=== PATIENT | female | born 1935 | race Caucasian/White ===

== ENCOUNTER 2016-05-10 11:39 | Emergency (ER) | payer MEDICARE, BC ==
[~2016-05-10] VITALS: Ht 165.1 cm; Wt 62.3 kg
[~2016-05-10 11:39] MED LIST: ANTIVERT 25MG25 MG PO; ASPI325T6 PO; CALCIUM500 MG PO; CALCIUM600 M1 PO; DULCOLAX S10 MG/SUPP RC; FERROUS SULFATE65 MG PO; MILK OF MA400 MG/52 PO; NORCO 325 MG-51 TAB PO; OMEGA 31000 MG PO; PRAVACHOL10 MG PO; SENOKOT S 50 MG1 TAB PO; TYLENOL 325MG325 MG PO; VITAMIN C500 MG PO; ZOFRAN 4MG T4 MG/TAB PO
[2016-05-10 11:51] VITALS: TEMP 97.6
[2016-05-10 13:02] LABS: ADJUSTED CALCIUM 9.4 mg/dL (8.4-10.2); ALBUMIN 3.9 gm/dL (3.5-5.0); BILIRUBIN,TOTAL 1.4 mg/dL (0.0-1.0); CALCIUM 9.3 mg/dL (8.4-10.2); CREATININE, serum 0.62 mg/dL (0.52-1.25); POTASSIUM 3.7 mmol/L (3.4-5.0); TOTAL PROTEIN 7.4 gm/dL (6.4-8.2)
[2016-05-10 13:13] LABS: BASO % 0.3 % (0.0-2.0); EOS # 0.1 (0.0-0.7); EOS % 0.4 % (0-4.0); GRAN # 11.1 (1.4-6.5); GRAN % 76.2 % (42.2-75.2); HEMOGLOBIN 13.9 g/dl (12.5-16.0); LYMPH # 2.2 (1.2-3.4); LYMPH % 15.2 % (20.0-51.0); MEAN CELL VOLUME 88 fl (80.0-100.0); MEAN CORPUSCULAR HEMOGLOBIN 29 pg (27.0-31.0); MEAN CORPUSCULAR HGB CONC 33 g/dl (33.0-37.0); MEAN PLATELET VOLUME 10.6 fl (7.4-10.4); MONO # 1.1 (0.1-0.6); MONO % 7.6 % (1.7-9.3); PLATELET COUNT 290 K/mm3 (130-400); RED BLOOD COUNT 4.76 M/mm3 (4.10-5.30); REDCELL DISTRIBUTION WIDTH-CV 14.6 % (11.5-14.5); WHITE BLOOD COUNT 14.6 K/mm3 (4.8-10.8)
[2016-05-10 14:54] LABS: PH 6 (5-8); SQUAMOUS EPITHELIAL None Seen /hpf; URINE APPEARANCE Clear; URINE BACTERIA None Seen /hpf; URINE BILIRUBIN Negative (NEGATIVE); URINE BLOOD Negative (NEGATIVE); URINE COLOR Yellow; URINE GLUCOSE Negative (NEGATIVE); URINE KETONE 1+ (NEGATIVE); URINE RBC 0-2 /hpf; URINE UROBILINOGEN Negative (NEGATIVE); URINE WBC 0-2 /hpf
[2016-05-10 15:31] VITALS: BP 125/78; PULSE 71
== END 2016-05-10 15:30 | disposition home or self-care (01) ==
LOC: COL.ER 11:39
PROVIDERS: Emergency Medicine
DX: R53.1 Weakness (principal); R53.83 Other fatigue; I45.10 Unspecified right bundle-branch block
CPT/HCPCS: J7030

== ENCOUNTER 2018-05-10 10:45 | Outpatient (RCR) | payer MEDICARE, BC ==
[~2018-05-10 10:45] MED LIST changes: +ASPIRIN 32325 MG/TAB PO; +NATURAL IRON65 MG PO; +OMEGA-3 1000 MG1 CAP PO; +ZOLOFT 25MG25 MG PO
== END 2018-05-10 15:35 | disposition home or self-care (01) ==
LOC: MKS.ESL.PT 10:45
DX: S72.112D Displaced fracture of greater trochanter of left femur, subsequent encounter for closed fracture with routine healing (principal)
CPT/HCPCS: G8978-GP; G8979-GP

== ENCOUNTER 2018-11-11 14:00 | Inpatient (IN) | payer MEDICARE, BC ==
[~2018-11-11] VITALS: Ht 165.1 cm; Wt 61.8 kg
--- NOTE | 2018-11-11 14:15 | NUR ---
PATIENT ARRIVED TO ROOM 334. PATIENT SETTELED INTO ROOM.
[2018-11-11 14:39] VITALS: BP 103/86; PULSE 68; TEMP 98.3
[2018-11-11] MEDS ORDERED: TYLENOL 500MG500 MG PO (15:00)
[2018-11-11] MEDS ORDERED: LOVENOX 4040 MG/0.4 SQ (15:01)
[2018-11-11] MEDS ORDERED: ULTRAM 50MG TAB50 MG PO (15:02)
[2018-11-11] MEDS ORDERED: ZOFRAN 4MG T4 MG/TAB PO (15:10)
--- NOTE | 2018-11-11 17:19 | NUR ---
PATIENT ADMISSION ASSESSMENT COMPLETE. SEE ASSESSMENT B. CALL LIGHT WITHIN REACH. DINNER TRAY AT THE BEDSIDE. PATIENT DENIES ANY NEEDS AT THIS TIME.
--- NOTE | 2018-11-11 18:53 | NUR ---
REPORT GIVEN TO PATY LOO.
--- NOTE | 2018-11-11 21:00 | NUR ---
PT RESTING IN BED. FRIENDLY AND TALKATIVE. C/O LLE PAIN. SEE MAR FOR ES TYLENOL GIVEN. PT SIGNED ADMISSION CONSENT PAPERS. REVIEWED IPR ROUTINE AND SCHEDULES FOR THERPIES. CALL LIGHT IN REACH. BED ALARM SET.
[2018-11-12 05:40] VITALS: BP 105/61; PULSE 55; TEMP 98.2
--- NOTE | 2018-11-12 12:57 | NUR ---
Pt toileted, returned to bed.
--- NOTE | 2018-11-12 15:44 | NUR ---
SW met with the patient to complete initial intake, as the patient is new to [facility]. The patient lives alone outside of [place]. She states that her son (Pawel) and [id number] (Latoya) live fifteen miles away from [place]. She reports independence with ADLs prior to hospitalization and has a cane, walker, and wheelchair. The patient's PCP is Dr. Russel Frost and she receives her medications at the [facility]. She reports no difficulties obtaining her meds. The patient's advanced directives are in EMR. Her DPOA-HC is her daughter, Tonia Sanchez (ph#[phone]). The first alternate is her son, Paewl Olmos (ph#[phone]) and the second alternate is her other son, Miguel Olmos ([phone]). TOMASA to continue to follow to ensure a safe discharge.
--- NOTE | 2018-11-12 20:00 | NUR ---
PT RESTING IN BED. PLEASANT AND COPPERATIVE. PAIN TO BACK/PELVIC OCCURS ONLY WITH MOVEMENT. UP TO LEVEL 10. SEE MAR FOR PAIN MEDS GIVEN. GAVE COLACE FOR MILD CONSTIPATION. NO NEEDS AT THIS TIME. CALL LIGHT IN REACH. BED ALARM SET.
[2018-11-12 20:55] VITALS: BP 111/61; PULSE 56; TEMP 97.8
--- NOTE | 2018-11-12 21:07 | NUR ---
Pt very talkative, stops while ambulating to BR to continue talking, offloads LLE with arms and walker significantly. Requested pain meds prior to time for PRNs, reviewed with pt. Report to PATY Payan.
[2018-11-13 05:32] VITALS: BP 103/85; PULSE 57; TEMP 97.9
[2018-11-13 08:48] VITALS: BP 127/50; PULSE 56; TEMP 98.1
--- NOTE | 2018-11-13 10:58 | NUR ---
Patient requested that she not be given any Tramadol as she feels that this med is causing her numbness in her fingertips. Given PRN Tylenol this morning with good effect. Will continue to monitor.
[2018-11-13 18:00] VITALS: BP 96/75; PULSE 82; TEMP 98.5
--- NOTE | 2018-11-13 19:33 | NUR ---
Patient attended all therapies today. Tolerated diet well today. Reported pain of 5/10 pain this morning and was given prn tylnol with good effect. Patient did not request pain pills through out the afternoon, when asked she said that pain was at zero at that time. Educated patient on need to stay ahead of pain instead of letting it get too high. She voiced understanding.
--- NOTE | 2018-11-13 21:00 | NUR ---
PT VERY APPRECIATIVE OF CARE GIVEN ALTHOUGH SHE HAS MANY COMPLAINTS. BED, ROOM TEMP, NO SHOWER SINCE THURSDAY. STAFF. PROVIDED EMOTIONAL SUPPORT. OFFERED CLEAN UP TONIGHT BUT INSIST ON SHOWER TOMORRW. I ENSURED PT I WOULD PASS ALONG INFO TO DAYSHIFT TOMORROW. PT WAS HAPPY WITH THIS. PT DENIED ANY OTHER NEEDS AT THIS TIME. PT RELATES PAIN ONLY WHEN SHE GETS OUT OF BED. ENC PT TO NOTIFY NURSE IF NEEDING PAIN MEDICATION. PT AGREED. CALL LIGHT IN REACH. BED ALARM SET.
[2018-11-14 06:18] VITALS: BP 136/70; PULSE 55; TEMP 97.6
[2018-11-14 17:43] VITALS: BP 127/66; PULSE 64; TEMP 98
--- NOTE | 2018-11-14 19:14 | NUR ---
Patient resting in bed at this time, call light in reach and bed alarm is on. Patient tolerating diet well this shift. She was a one assist with transferring to toilet. Patient was very talkative this shift and was in a pleasent mood. Patient wears a brief and was continent this shift.
--- NOTE | 2018-11-14 20:19 | NUR ---
PT RESTING IN BED. HAD BM EALIER THIS PM. NEEDS MOD AMT ASSIST WITH AM WITH WALKER. SEE MAR FOR PAIN MEDS GIVEN. CALL LIGHT IN REACH. BED ALARM SET.
[2018-11-15 05:43] VITALS: BP 104/55; PULSE 54; TEMP 97.9
--- NOTE | 2018-11-15 07:38 | NUR ---
Report from PATY Payan. Pt called to toilet, takes long time to get out of bed and amb to BR with walker, gait belt, asked assistance for moving LLE, has unsteadiness.
--- NOTE | 2018-11-15 09:31 | NUR ---
Provided 20-30 minutes of therapuetic listening/encouragement prior to start of therapy as pt has c/o of staff/issues and pt voices being frustrated with herself/family/God. Pt thanked nurse for support.
--- NOTE | 2018-11-15 12:30 | NUR ---
Updated Dr. Mason about pt's pain and insomnia, see new orders.
--- NOTE | 2018-11-15 16:25 | NUR ---
Pt called to toilet, assisted out of bed, toileted, returned to chair with alarm on, call lt in reach, gripper socks in place.
[2018-11-15 17:25] VITALS: BP 110/61; PULSE 65; TEMP 98.5
--- NOTE | 2018-11-15 21:00 | NUR ---
HS meds all reviwed along with roxycodone for pain. States will take her cookie for snack. Alert and pleasant. Denies further needs. Visits about family and friend.
--- NOTE | 2018-11-16 02:09 | NUR ---
Patient sat up on side of bed for 15minutes and rested self back. Assisted with hips and BLE over in bed and pillow under legs.
--- NOTE | 2018-11-16 02:44 | NUR ---
Patient rests with eyes closed. Respirations with ease.
[2018-11-16 06:00] VITALS: BP 121/52; PULSE 61; TEMP 98.2
--- NOTE | 2018-11-16 09:10 | NUR ---
Patient working with PT at this time. Patient reported sleeping fairly well last night. Denies questions at this time. Was a one person SBA transfer to toilet and was able to wipe herself independently.
--- NOTE | 2018-11-16 13:21 | NUR ---
SW met with patient to follow up and discuss scheduling a family conference. Patient reports she would like her daughter in law, Latoya, to attend. SW contacted Latoya and she reports she can attend the meeting at 10am tomorrow 11/17.
[2018-11-16 16:37] VITALS: BP 113/51; PULSE 64; TEMP 98.3
--- NOTE | 2018-11-16 19:55 | NUR ---
Patient having some pain to her lower left flank area. She is also having some urgency with urination. She does not have a history of UTI's, but does have a history of kidney stones. Will discuss with radhaan tomorrow.
--- NOTE | 2018-11-16 20:13 | NUR ---
This nurse did observe patient's urine, which was light yellow, very clear and did not have a fowel oder. The urine was strained with only two small specs of sediment observed. They were not hard but very minute in size. This will be communicated to physician tomorrow. This was reported to night nurse.
--- NOTE | 2018-11-16 22:15 | NUR ---
Patient resting awake in bed. HS meds all reviewed and given. Up to the bathroom and back to bed with CERTIFIED MEDICAL ASST and requested tylenol for pain/given. BLE elevated on pillows.
--- NOTE | 2018-11-16 23:45 | NUR ---
Rests with eyes closed. Respirations with ease.
--- NOTE | 2018-11-17 01:20 | NUR ---
Patient up to the bathroom accompanied by BAR CAPTAIN and rests back in bed.
[2018-11-17 05:01] VITALS: BP 113/65; PULSE 58; TEMP 97.6
--- NOTE | 2018-11-17 05:30 | NUR ---
Awakened for med. Denies need for pain med at this time. Up to the bathroom slowly with LASER PRINT OPERATOR and back to bed.
--- NOTE | 2018-11-17 13:24 | NUR ---
SW attended a family conference with patient and daughter in law. IPR director, PT, and OT were also present. IPR director explained the purpose of the conference. PT and OT report that patient has made good progress and will continue to make progress this week but patient's pain continues to be a barrier. Patient's pain medication regimen was adjusted by the doctor today. A tentative discharge date was set for Friday 11/24. Patient will discharge home with continued therapy from [facility]. Patient's daughter in law reports they have been in contact with Juan Luis from [facility] to discuss the services they can provide in addition to PT and OT. TOMASA will continue to follow. TOMASA later provided IPR team conference notes.
--- NOTE | 2018-11-17 15:48 | NUR ---
Patient resting in recliner at this time with son and friend by her side. Patient tolerating diet well today. Reporting pain 6-8/10 and given prn tramadol this afternoon for pelvic pain. Will continue to monitor.
[2018-11-17 17:29] VITALS: BP 109/60; PULSE 63; TEMP 98
--- NOTE | 2018-11-17 21:19 | NUR ---
Patient tolerated diet well this shift. Dr. Mason discussed pain meds with patient, see new orders to increase Tramadol. Patient was a mod assist with transfers today. She required some assistance with trying to stand from a sitting position on the toilet. She was able to urinate on her own, wears a pad in underwear. No incontinence this shift. She has been having urge incontinence, but urine is light yellow, clear and no fowel odor to it. She is having good output this shift. Patient required some min assist with adjusting clothes following her toileting. Patient has a good memory discussed stories from jen faustin. Was in good humor this shift.
[2018-11-18 05:29] VITALS: BP 116/57; PULSE 59; TEMP 97.6
--- NOTE | 2018-11-18 06:19 | NUR ---
pt reports she slept very well. had a good night.
[2018-11-18 17:50] VITALS: BP 87/54; PULSE 65; TEMP 98.3
--- NOTE | 2018-11-18 19:31 | NUR ---
SUMMARY: Report from PATY Payan. Pt reports she feels she is not doing as well in therapies as yesterday, gave encouragment. Pt states [facility] rep came and visited with her and JATIN Klein. Pt reports pain min-mod at rest, but "10 PLUS" when walking, PRNs given. Ice to hip this mahendra. Pt in bed, alarm on, call lt in reach. Report to PATY Payan.
--- NOTE | 2018-11-18 21:00 | NUR ---
PT RESTING IN BED. SEE MAR FOR PAIN MEDS GIVEN. ICE PACK TO LT HIP FOR COMFORT. PT TALKATIVE AND DENIES NEEDS AT THIS TIME. CALL LIGHT IN REACH. BED ALARM SET.
[2018-11-19 02:12] VITALS: BP 118/58; PULSE 62; TEMP 98.2
--- NOTE | 2018-11-19 11:43 | NUR ---
Report from PATY Payan. Pt calls to toilet, gets anxious and asks for help moving LLE out of bed, afraid of incont. Asked therapy for leg advertising display rotator to increase pt's indepence. Ultram prior to therapy.
--- NOTE | 2018-11-19 13:22 | NUR ---
Pt ate lunch in bed, nurse rounding and offered tylenol for pain, then pt asked to toilet, provided pt with gait belt to use as leg pattern layout worker and she struggled for some time with gripper socks in the sheets before getting leg over side of bed. Once pt to toilet, she verbalized not having patience or tolerance for her current condition and she was uncertain of a plan for after she discharges home, stating that her family will stay with her for a few days. Discouraged that she is not making progress- nurse asked pt how many times she has gotten her leg out of bed on her own, to which pt replies, "once" and nurse affirms that this is improvement. Pt returned to chair, nurse got ice pack for left hip, upon return the pt apologizes for her negativity. Pt denied further needs.
--- NOTE | 2018-11-19 15:13 | NUR ---
TOMASA met with the patient to discuss care and the discharge plan. The patient is still agreeable to home health with [facility]. emergency services dispatcher will continue to follow.
[2018-11-19 18:09] VITALS: BP 128/60; PULSE 59; TEMP 98.2
--- NOTE | 2018-11-19 23:30 | NUR ---
Patient has been resting in bed with eyes closed. Awakened for HS meds and tylenol given for pain left hip/thigh 5-08/16. Denies further needs.
--- NOTE | 2018-11-20 01:56 | NUR ---
Rests with eyes closed. Respirations with ease.
--- NOTE | 2018-11-20 03:26 | NUR ---
Patient has been resting with eyes closed. Respirations with ease.
[2018-11-20 06:01] VITALS: BP 112/55; PULSE 57; TEMP 97.8
--- NOTE | 2018-11-20 06:05 | NUR ---
Patient reports she was up to the bathroom 3 times through the night.
[2018-11-20 17:03] VITALS: BP 141/115; PULSE 67; TEMP 98
--- NOTE | 2018-11-20 18:25 | NUR ---
Patient resting in her room at this time. Patient remains alert and oriented, answers questions appropriately. Patient continues to move steadily with walker, and is independent in room per PT orders. Pain has remained well controlled with ultram. Patient denies further needs at this time, call light within reach.
--- NOTE | 2018-11-21 00:23 | NUR ---
Pt asleep. Resp even and nonlabored. Call light within reach.
[2018-11-21 05:40] VITALS: BP 115/64; PULSE 55; TEMP 97.9
[2018-11-21 17:18] VITALS: BP 114/68; PULSE 65; TEMP 98.3
--- NOTE | 2018-11-21 23:30 | NUR ---
Pt had called for her melatonin and tylenol. States pain is 6/10 in left leg. Worried about her therapy schedule for tomorrow. Encouraged to take Ultram around 6AM to help with pain and to work better with therapy.
--- NOTE | 2018-11-22 01:03 | NUR ---
Pt calls and says she still can't get to sleep and her leg is bothering her. Ultram 50mg given and a warm blanket applied to left side. Upset that she has therapy 4 times tomorrow.
[2018-11-22 06:01] VITALS: BP 118/54; PULSE 58; TEMP 97.9
--- NOTE | 2018-11-22 06:24 | NUR ---
Pt states she did not have a good night. She was worried her therapy schedule for Thursday. Explained to her to try and take a pain pill with her breakfast and then it should be helping by the time therapy works with her. Has a slow steady gait. She has been using her gait belt to help lift her left foot into bed. Denies any needs at this time. Call light within reach.
--- NOTE | 2018-11-22 11:24 | NUR ---
This nurse received call from staff at 1106 on behalf of pt wanting pain meds, this nurse finished attending to another patient then found this patient in nath with PT and administered pain meds to pt at 1120. Pt comments, "It's a day late and a dollar short but I'll take it." Then pt said thank you. Continued with PT.
--- NOTE | 2018-11-22 14:35 | NUR ---
Pt has occassionally called for assistance with cares, ex: this morning, lower body dressing prior to therapy.
[2018-11-22 16:38] VITALS: BP 113/64; PULSE 58; TEMP 98.2
--- NOTE | 2018-11-22 21:00 | NUR ---
Patient awake and reports 5/10 pain Left hip. HS meds along with tramadol given for pain. Rests in bed. Cookie given for snack. Encouraged to call for needs during the night.
--- NOTE | 2018-11-23 02:35 | NUR ---
Patient rests in bed with eyes closed. Respirations with ease.
[2018-11-23 05:56] VITALS: BP 112/60; PULSE 58; TEMP 97.7
--- NOTE | 2018-11-23 06:09 | NUR ---
AWAKENED FOR MED AND PAIN MED OFFERED-DECLINED AT THIS TIME.
--- NOTE | 2018-11-23 10:05 | NUR ---
Patient is Independent in room and hallway with 4WW. Patient reporting pain level of 5/10 and given prn pain meds with some effect. Will continue to monitor. Patient tolerating diet well this morning. No nausea.
--- NOTE | 2018-11-23 10:57 | NUR ---
TOMASA met with patient to follow up. Patient reports she has mixed feelings about discharging tomorrow but reports her daughter in law, Latoya will be staying with her. Patient will recieve [facility] for continued PT and OT. TOMASA faxed clinical info and will fax discharge orders tomorrow. TOMASA presented IM to patient. She verbalized understanding, signed and was provided a copy.
--- NOTE | 2018-11-23 12:45 | NUR ---
Patient attended all therapies today and is using her walker appropriatly with transfers in her room. Patient continues to be independent in her room with her 4WW. Patient denies questions at this time. Pain was controlled with Tylenol this morning. Will continue to monitor.
--- NOTE | 2018-11-23 13:28 | NUR ---
Patient working with OT at this time. Patient reporting pain 7/10 and requesting pain meds. Given prn Tramadol will continue to monitor.
[2018-11-23 17:38] VITALS: BP 113/63; PULSE 58; TEMP 98
--- NOTE | 2018-11-23 21:20 | NUR ---
Patient resting in bed. HS meds all reviewed and given along with tylenol for left thigh achyness. Denies further needs. States has had a bm everyday except for today.
--- NOTE | 2018-11-23 23:08 | NUR ---
Rests quietly in bed.
--- NOTE | 2018-11-24 03:08 | NUR ---
Resting quietly in bed. Respirations with ease.
[2018-11-24 03:48] VITALS: BP 104/43; PULSE 55; TEMP 98
--- NOTE | 2018-11-24 05:59 | NUR ---
AWAKENED FOR MED. DENIES NEED FOR PAIN MED. "DOING OK RIGHT NOW".
[2018-11-24] MEDS ORDERED: ULTRAM 50MG TAB50 MG PO (07:51)
[2018-11-24] MEDS ORDERED: TYLENOL 500MG500 MG PO (07:52)
--- NOTE | 2018-11-24 09:30 | NUR ---
Patient will discharge home today with [facility], PT/OT. SW contacted Juan Luis, from [facility] and faxed discharge orders. Juan Luis reports patient's first visit is scheduled for tomorrow 11/25.
--- NOTE | 2018-11-24 11:31 | NUR ---
Report from PATY Hernandez. Pt alen mod I in rm with walker. Called for pain med, ultram given. Called pt's DIL, no answer, got through to son Pawel, informed them this nurse would return call when pt ready for discharge, likely after lunch, verbalized understanding. Pt pleasant today.
--- NOTE | 2018-11-24 12:16 | NUR ---
Pt's DIL Latoya here. Pt wants to take Tylenol prior to discharge.
--- NOTE | 2018-11-24 14:06 | NUR ---
Reviewed discharge instruction with pt and JATIN Klein.
--- NOTE | 2018-11-25 13:47 | NUR ---
Discharge FIM scores for 11/24/18, were reviewed by the team. Team determined the nursing score of (6) for toileting should have been scored a 7 as pt was Mod I in her room & was able to perform her own toileting task w/out use of adaptive devices.--PD Laquita.
== END 2018-11-24 14:15 | disposition home health service (06) | DRG 561 ==
PROVIDERS: ADMIT Internal Medicine
DX: S32.592D Other specified fracture of left pubis, subsequent encounter for fracture with routine healing (principal); I10 Essential (primary) hypertension; F32.9 Major depressive disorder, single episode, unspecified; M19.90 Unspecified osteoarthritis, unspecified site; I95.9 Hypotension, unspecified; W19.XXXD Unspecified fall, subsequent encounter; Z79.891 Long term (current) use of opiate analgesic
CPT/HCPCS: 99222-AI; 99232-AI; 99239; J1650

== ENCOUNTER 2020-05-15 12:54 | Emergency (ER) | payer MEDICARE, BC ==
[~2020-05-15] VITALS: Ht 165.1 cm; Wt 60.9 kg
[~2020-05-15 12:54] MED LIST changes: +LOVENOX 4040 MG/0.4 SQ; +TYLENOL 500MG500 MG PO; +ULTRAM 50MG TAB50 MG PO
[2020-05-15 13:04] VITALS: TEMP 98.7
[2020-05-15 13:19] LABS: BASO % 0.2 % (0.0-2.0); EOS % 0.1 % (0-4.0); GRAN # 11.1 (1.4-6.5); GRAN % 82.3 % (42.2-75.2); HEMATOCRIT 44.4 % (37.0-47.0); HEMOGLOBIN 14.4 g/dl (12.5-16.0); LYMPH # 1.8 (1.2-3.4); LYMPH % 13.3 % (20.0-51.0); MEAN CELL VOLUME 90 fl (80.0-100.0); MEAN CORPUSCULAR HEMOGLOBIN 29 pg (27.0-31.0); MEAN CORPUSCULAR HGB CONC 32 g/dl (33.0-37.0); MEAN PLATELET VOLUME 10.2 fl (7.4-10.4); MONO # 0.5 (0.1-0.6); MONO % 3.7 % (1.7-9.3); PLATELET COUNT 311 K/mm3 (130-400); RED BLOOD COUNT 4.95 M/mm3 (4.10-5.30); REDCELL DISTRIBUTION WIDTH-CV 13.7 % (11.5-14.5)
[2020-05-15 13:30] LABS: ALANINE AMINOTRANSFERASE 20 U/L (4-34); ALBUMIN 4.2 gm/dL (3.5-5.0); ALKALINE PHOSPHATASE 68 U/L (50-136); ANION GAP 7 mmol/L (7-16); AST,SGOT 29 U/L (15-37); BILIRUBIN,TOTAL 0.8 mg/dL (0.0-1.0); BLOOD UREA NITROGEN 20 mg/dL (7-17); CALCIUM 9.3 mg/dL (8.4-10.2); CARBON DIOXIDE 28 mmol/L (22-30); CHLORIDE 106 mmol/L (98-107); CREATININE, serum 0.63 (0.52-1.25); GLUCOSE 120 mg/dL (74-106); POTASSIUM 3.7 mmol/L (3.4-5.0); SODIUM 141 mmol/L (137-145); TOTAL PROTEIN 7.2 gm/dL (6.4-8.2)
[2020-05-15 13:43] LABS: TROPONIN-I < 0.012 ng/mL (0.000-0.035)
[2020-05-15 15:06] LABS: COLLECTION METHOD CLEAN CATCH
[2020-05-15 15:42] LABS: MUCOUS Present /lpf; PH 6 (5-8); URINE APPEARANCE Hazy; URINE BACTERIA Rare /hpf; URINE BILIRUBIN Negative (NEGATIVE); URINE BLOOD Negative (NEGATIVE); URINE COLOR Yellow; URINE GLUCOSE Negative (NEGATIVE); URINE KETONE 1+ (NEGATIVE); URINE LEUKOCYTE ESTERASE 3+ (NEGATIVE); URINE NITRATE Negative (NEGATIVE); URINE PROTEIN(semi-quant) 1+ (NEGATIVE); URINE RBC 20-50 /hpf; URINE UROBILINOGEN Negative (NEGATIVE); URINE WBC 20-50 /hpf
[2020-05-15 15:47] LABS: SQUAMOUS EPITHELIAL None Seen /hpf
[2020-05-15] MEDS ORDERED: MACROBID 1100 MG/CAP PO (18:55)
[2020-05-15 19:07] VITALS: BP 119/75; PULSE 65
[2020-05-18] MEDS ORDERED: CIPRO 500MG TA500 MG PO (10:46)
== END 2020-05-15 19:07 | disposition home or self-care (01) ==
LOC: COL.ER 12:54
PROVIDERS: Nurse Practitioner Primary Care
DX: R55 Syncope and collapse (principal); N39.0 Urinary tract infection, site not specified
CPT/HCPCS: J0696; J7030

== ENCOUNTER 2021-06-22 01:27 | Inpatient (IN) | payer MEDICARE, BC ==
[~2021-06-22] VITALS: Ht 165.1 cm; Wt 62.0 kg
[2021-06-22] VITALS (9 sets, daily range): BP systolic 98–134; BP diastolic 46–72; PULSE 55–90; TEMP 98.1–99
[~2021-06-22 01:27] MED LIST changes: +CIPRO 500MG TA500 MG PO; +MACROBID 1100 MG/CAP PO
[2021-06-22] MEDS ORDERED: CELEXA 20MG20 MG/TAB PO (02:56)
[2021-06-22] MEDS ORDERED: MELATONIN1 MG PO (04:25)
[2021-06-22] MEDS ORDERED: MILK OF MA400 MG/52 PO (04:26)
--- NOTE | 2021-06-22 04:54 | NUR ---
Pt. arrived to the floor from ED on stretcher. Pt. transferred to bed with 4 assist and slide board. Pt. is A&OX3, assessment complete. INT to lt. forearm patent. Pt. reports no pain when not moving. Moving does increase pain but it does subside. Pt. denies further needs, call light within reach.
[2021-06-22 12:21] LABS: COLLECTION METHOD CATHETER
[2021-06-22 12:37] LABS: MUCOUS Present (NOT PRESENT); PH 7 (5-8); SQUAMOUS EPITHELIAL 0-2 /hpf (0-10); URINE APPEARANCE Clear (CLEAR/HAZY); URINE BACTERIA None Seen /hpf (NONE SEEN); URINE BILIRUBIN Negative (NEGATIVE); URINE BLOOD Negative (NEGATIVE); URINE COLOR Yellow (YELLOW); URINE GLUCOSE Negative (NEGATIVE); URINE KETONE Negative (NEGATIVE); URINE LEUKOCYTE ESTERASE Negative (NEGATIVE); URINE NITRATE Negative (NEGATIVE); URINE PROTEIN(semi-quant) Negative (NEGATIVE); URINE RBC 0-2 /hpf (0-2); URINE UROBILINOGEN Negative (NEGATIVE)
[2021-06-22 13:00] LABS: BASO % 0.2 % (0.0-2.0); EOS # 0.1 K/mm3 (0.0-0.7); EOS % 0.9 % (0.0-4.0); GRAN # 7.2 K/mm3 (1.4-6.5); GRAN % 73.6 % (42.2-75.2); HEMATOCRIT 38.9 % (37.0-47.0); HEMOGLOBIN 12.8 g/dl (12.5-16.0); LYMPH # 1.7 K/mm3 (1.2-3.4); LYMPH % 16.8 % (20.0-51.0); MEAN CELL VOLUME 86 fl (80.0-100.0); MEAN CORPUSCULAR HEMOGLOBIN 28 pg (27-31); MEAN CORPUSCULAR HGB CONC 33 g/dl (33.0-37.0); MEAN PLATELET VOLUME 10.2 fl (7.4-10.4); MONO # 0.8 K/mm3 (0.1-0.6); MONO % 8.2 % (1.7-9.3); PLATELET COUNT 278 K/mm3 (130-400); RED BLOOD COUNT 4.51 M/mm3 (4.10-5.30); REDCELL DISTRIBUTION WIDTH-CV 14.1 % (11.5-14.5)
[2021-06-22 13:13] LABS: BILIRUBIN,TOTAL 1.5 mg/dL (0.2-1.2); CREATININE, serum 0.69 mg/dL (0.57-1.11); POTASSIUM 3.6 mmol/L (3.5-4.5); TOTAL PROTEIN 6.8 gm/dL (6.2-8.1)
--- NOTE | 2021-06-22 15:06 | NUR ---
SW met with patient to complete intake. Patient states that she lived outside of [place]. SW later informed that patient lived at [facility] in [place] and was obtaining PT and OT per facilty staff. DPOA/HC is daughter Tonia HillDaniel [phone]. POA is son Pawel Olmos [phone]. Patient states that she has recently started using a walker and a cane and is obtaining some assistance with ADL's. Plan is to return to [facility] up on DC. TOMASA will continue to follow. DC plan: back to [facility] in [place]
--- NOTE | 2021-06-22 18:03 | NUR ---
Received report from paper cone grader. Patient alert and oriented x4. Resting in bed, patient complains of pain but denies need for medication. Assessment perfomed, Devlin to DD with good output. Patient tolerating fluids and general diet. AM meds administered. cut out worker contacted to begin placement for patient. Patient has been released by ortho and hospitalist to go to a skilled facility. Patient and family to have a discussion regarding placement. Patient
--- NOTE | 2021-06-22 20:30 | NUR ---
Pt. sitting up in bed. Pt. is A&OX3, assessment complete. INT to lt. forearm patent. Pt. reports pain at a 4 on pain scale. Will Give pain meds per orders. Pt. denies further needs, call light within reach.
[2021-06-23 03:42] VITALS: BP 102/54; PULSE 56; TEMP 97.8
[2021-06-23 07:41] VITALS: BP 116/58; PULSE 60; TEMP 98.9
--- NOTE | 2021-06-23 10:38 | NUR ---
SW informed that patient will be discharging on this day back to [facility] in [place]. DPOA/HC daughter Tonia [phone] called to inform of information. Documentation faxed to facility, facility staff informed of orders. Daughter provided that plan is to arrive to pick patient up mid afternoon. SW will continue to follow.
--- NOTE | 2021-06-23 11:38 | NUR ---
TOMASA called by CHRISTY of [facility] in [place]. CHRISTY Harvey direct cell number [phone] stated that she would prefer that patient be transported tomorrow 06/24/2021 by her facility transportation. CHRISTY also stated that she would not have on hand narcotics today for pain if patient transfered back to facility today. Current DC plan: Patient to be transported by [facility] transpor[facility] tomorrow. Please call CHRISTY directly with time and information pertaining to transport. TOMASA called physician and floor nurse to inform of above information as well as DPOA/HC daughter Tonia [phone], and patient informed of update as well. TOMASA will continue to follow.
[2021-06-23 11:58] VITALS: BP 103/58; PULSE 63; TEMP 99.3
--- NOTE | 2021-06-23 13:22 | NUR ---
Received report from assembler 1st shift. Patient here for pubic ramis fracture. VSS. Patient resting in bed. Assessment performed. Devlin to DD with good output. AM meds administered. Patient complains of pain. Pain medication administered. neighborhood worker met with patient to discuss discharge planning. Patient states that she will not return to facility from which she came and does not want to go to another facility. Will continue to monitor. Call light near.
[2021-06-23 15:44] VITALS: BP 117/65; PULSE 60; TEMP 98.4
--- NOTE | 2021-06-23 16:19 | NUR ---
Patient reports she does not want to leave this facility and will begin to refuse food. Patient denies suicidal thoughts, but insists that she is ready to and wants to refuse food until she does so. Patient's family was notified.
--- NOTE | 2021-06-23 20:30 | NUR ---
PATIENT IS RESTING IN BED.PATIENT RATES PAIN AT 6.PATIENT REFUSES TO TAKE PILLS.PATIENT STATES THAT SHE IS READY TO .SHE IS UNHAPPY BECAUSE IT WAS MENTIONED HER THAT SHE IS SUPPOSED TO DISCHARGE HOME.SHE ALSO STATES THAT SHE IS DISAPPOINTED WUTH HER CHILDREN NOT VISITING HER AT THE SNF AND EVEN HERE AT THE HOSPITAL.PATIENT HAS A MENG WHICH IS DRAINING FREELY.SAFETY MEASURES IN PLACE.NO OTHER NEEDS AT THIS TIME.
[2021-06-23 21:00] VITALS: BP 107/77; PULSE 67; TEMP 98.4
[2021-06-24 00:49] VITALS: BP 128/58; PULSE 64; TEMP 98
[2021-06-24 03:58] VITALS: BP 118/58; PULSE 67; TEMP 98.2
--- NOTE | 2021-06-24 05:29 | NUR ---
PATIENT SLEPT THROUGH THE NIGHT.PATIENT REFUSES TO EAT NOR DRINK STATING THAT SHE WILL WANTS TO STARVE TO .SAFETY MEASURES IN PLACE.NO OTHER NEEDS AT THIS TIME.
--- NOTE | 2021-06-24 06:40 | NUR ---
awake resting in bed, bedside shift report received from PATY Peralta, patient appears unhappy with being here and what is going on, states hasn't had a washcloth for her face since getting here, assured her we will get her cleaned up today
--- NOTE | 2021-06-24 07:30 | NUR ---
called and is wanting to talk to the Dr about her hplan for not leaving the hospital, she is unhappy and does not want to go back to [facility] she is insistent she stay here for therapy, discussed with her that the Dr is not here yet and they will discuss this with her when they come in, again, she is insistent that she will not leave and if so will stop eating and starve herself, reminded her she can talk to Dr when they make rounds, full assessment completed, see interventions for further info
[2021-06-24 08:00] VITALS: BP 112/57; PULSE 66; TEMP 98.8
--- NOTE | 2021-06-24 08:50 | NUR ---
c/o pain and medicated with hydrocodone 5mg 1 tab, Dr Mason was in and saw patient and informed her she would be going back to [facility] today, she is very angry and saying nobody cares about how awful her matilda has been and how bad she is now, so she will just go to [facility] and starve, listened to her
--- NOTE | 2021-06-24 09:55 | NUR ---
First visit from the ethnology teacher. No needs right now.
--- NOTE | 2021-06-24 10:00 | NUR ---
appears to be dozing, in bed with eyes closed, resp quiet and easy
--- NOTE | 2021-06-24 10:40 | NUR ---
states pain is better, lee catheter discontinued and tolerated well, instructed to call when she needs to void and we will assist her with getting up to bedside commode
--- NOTE | 2021-06-24 11:00 | NUR ---
therapy in to visit with patient
[2021-06-24] MEDS ORDERED: TYLENOL 500MG500 MG PO (11:24)
[2021-06-24] MEDS ORDERED: NORCO 325 MG-51 TAB PO (11:38)
[2021-06-24 11:45] VITALS: BP 112/57; PULSE 66; TEMP 98.8
[2021-06-24 12:00] VITALS: BP 105/61; PULSE 67; TEMP 99.2
--- NOTE | 2021-06-24 12:08 | NUR ---
resting in bed, explained the OBSTETRICAL ANESTHESIOLOGIST and I would help her get dressed for discharge including giving her a depends to wear, offered lunch and she refuses stating she is not going to eat,
--- NOTE | 2021-06-24 13:00 | NUR ---
assisted up to bedside commode but did not void, had been incontinent of small amount of urine before getting up, dressed and ready for discharge, medicated with hydrocodone 5mg 1 tab
--- NOTE | 2021-06-24 13:14 | NUR ---
Field Nurse Case Manager attended clinical rounds with the team and patient ready for discharge today. Patient did not meet three midnight criteria for skilled so patient will return to [facility]. TOMASA notified both [facility] and patient's daughter, Tonia about skilled nursing care orders. Transport time was set for 1330. TOMASA contacted patient's daughter, Tonia to provide transport time. TOMASA faxed discharge orders to CHRISTY Harvey at [facility]. Discharge Plan: [facility]
--- NOTE | 2021-06-24 14:07 | NUR ---
[facility] staff here, assisted patient into WC and discharged per , report called to Hailey at [facility]
== END 2021-06-24 14:07 | DRG 536 ==
LOC: COL.ER 01:27 → SURG 02:37 → COL.ER 03:52 → SURG 06-24 14:07
PROVIDERS: Internal Medicine; Student in an Organized Health Care Education/Training Program; ADMIT Internal Medicine
DX: S32.592A Other specified fracture of left pubis, initial encounter for closed fracture (principal); S32.591A Other specified fracture of right pubis, initial encounter for closed fracture; I10 Essential (primary) hypertension; M19.90 Unspecified osteoarthritis, unspecified site; F32.A Depression, unspecified; Z66 Do not resuscitate; W18.30XA Fall on same level, unspecified, initial encounter; Y93.89 Activity, other specified; Y92.008 Other place in unspecified non-institutional (private) residence as the place of occurrence of the external cause; Z96.641 Presence of right artificial hip joint; Z87.442 Personal history of urinary calculi; Z23 Encounter for immunization
CPT/HCPCS: 99222-AI; 99231-AI; 99239

== ENCOUNTER 2023-03-20 06:05 | Observation (INO) | payer MEDICARE, BC ==
[~2023-03-20] VITALS: Ht 165.1 cm; Wt 70.3 kg
[2023-03-20] VITALS (7 sets, daily range): BP systolic 106–149; BP diastolic 48–83; PULSE 63–92; TEMP 97.3–98.3
[~2023-03-20 06:05] MED LIST changes: +ALEVE 220MG220 MG PO; +CELEXA 20MG20 MG/TAB PO; +DESYREL 50MG50 MG PO; +DESYREL DIVIDO150 M1 PO; +DITROPAN 5MG TAB5 MG PO; +EFFEXOR XR75 MG/CAP PO; +EFFEXOR-XR150 MG PO; +MELATONIN1 MG PO; +NATURAL FISH1200 MG PO; -OMEGA-3 1000 MG1 CAP PO; +PEPCID 20MG TAB20 MG PO; +SALONPAS1 EACH TP; +VISTARIL 2525 MG/CAP PO; +ZOLOFT 50MG50 MG PO
[2023-03-20 06:30] LABS: BASO % 0.2 % (0.0-2.0); EOS % 0.3 % (0.0-4.0); GRAN # 8.2 K/mm3 (1.4-6.5); GRAN % 72.9 % (42.2-75.2); HEMATOCRIT 39.9 % (37.0-47.0); HEMOGLOBIN 13.4 g/dl (12.5-16.0); LYMPH # 2.2 K/mm3 (1.2-3.4); LYMPH % 19.5 % (20.0-51.0); MEAN CELL VOLUME 84 fl (80.0-100.0); MEAN CORPUSCULAR HEMOGLOBIN 28 pg (27-31); MEAN CORPUSCULAR HGB CONC 34 g/dl (33.0-37.0); MONO # 0.8 K/mm3 (0.1-0.6); MONO % 6.7 % (1.7-9.3); PLATELET COUNT 306 K/mm3 (130-400); RED BLOOD COUNT 4.75 M/mm3 (4.10-5.30); REDCELL DISTRIBUTION WIDTH-CV 13.4 % (11.5-14.5)
[2023-03-20] MEDS ORDERED: fentaNYL 50 MCG/ML 2 ML VIAL IV ONE (06:30)
[2023-03-20 06:47] LABS: ALANINE AMINOTRANSFERASE 15 U/L (0-55); ALBUMIN 3.5 gm/dL (3.4-4.8); ALKALINE PHOSPHATASE 69 U/L (40-150); ANION GAP 11 mmol/L (7-16); AST,SGOT 19 U/L (5-34); BILIRUBIN,TOTAL 0.7 mg/dL (0.2-1.2); BLOOD UREA NITROGEN 13 mg/dL (10-20); CALCIUM 9.3 mg/dL (8.4-10.2); CARBON DIOXIDE 24 mmol/L (23-31); CHLORIDE 103 mmol/L (98-107); CREATININE, serum 0.72 mg/dL (0.57-1.11); GLUCOSE 141 mg/dL (70-99); POTASSIUM 4.2 mmol/L (3.5-4.5); SODIUM 138 mmol/L (136-145); TOTAL PROTEIN 6.7 gm/dL (6.2-8.1)
[2023-03-20 06:54] LABS: TROPONIN-I < 0.010 ng/mL (0.00-0.033)
[2023-03-20] MEDS ORDERED: Mag/Al Hydrox/Simeth Susp 30 ML CUP PO ONE (09:00)
[2023-03-20] MEDS ORDERED: MINTOX PO (09:31)
--- NOTE | 2023-03-20 10:33 | NUR ---
Pt arrived to the floor. Pt reported that she has been needing to go to the bathroom. Assisted her to the commode. Pt was able to void, but it did take some time. Sent urine down to lab per the order from earlier this morning in ED. Pt still in street clothes, assisted into yellow gown and then assisted to bed. Pt answers to A&O questions are appropriate, but conversation is very confused. Pt is very angry with being alive and is not happy that people intervene when events happen. Notifed hospitalist of pts arrive the room and request for care orders. Bed alarm on and call light within reach
[2023-03-20 10:51] LABS: COLLECTION METHOD CLEAN CATCH
[2023-03-20] MEDS ORDERED: Lidocaine 4% Topical Patch TP SCH (10:51)
[2023-03-20] MEDS ORDERED: Ondansetron 4 MG/2 ML VIAL IV PRN (11:00)
[2023-03-20] MEDS ORDERED: Acetaminophen 325 MG TAB PO PRN (11:00)
[2023-03-20 11:14] LABS: MUCOUS Present (NOT PRESENT); SQUAMOUS EPITHELIAL 0-2 /hpf (0-10); URINE APPEARANCE Clear (CLEAR/HAZY); URINE BLOOD Negative (NEGATIVE); URINE COLOR Yellow (YELLOW); URINE GLUCOSE Negative (NEGATIVE); URINE KETONE Negative (NEGATIVE); URINE NITRATE Negative (NEGATIVE); URINE PROTEIN(semi-quant) Negative (NEGATIVE); URINE RBC 0-2 /hpf (0-2); URINE UROBILINOGEN 0.2 E.U/dL (0.2-1.0)
--- NOTE | 2023-03-20 14:29 | NUR ---
Pt continues to be very negative about everything. She did accidently pull out her iv in the left AC. New IV place in her left forearm/wrist area. Pt tolerated with no complaints. Pt continues to use her call light when she needs to use the restroom. Bed alarm on, no other needs
--- NOTE | 2023-03-20 15:13 | NUR ---
Access Assoc met with patient to complete initial intake. Patient lives at [facility] and advised she was placed there by her children, which she was not happy about. Patient sees Dr. Valdivia for primary care but remarked "I don't like him" and that she wants to be switched back to her PCP in [place] she had before she moved to [place]. Patient then began talking about how she did not want to go to the [facility] as she had a friend pass away there. SW confirmed with patient plan for discharge is to return to [facility]. Patient has [facility] in EMR designating her daughter, Tonia as primary agent. TOMASA contacted Thalia at [facility] and advised per bedside RN, patient may be ready for discharge tomorrow. TOMASA also faxed clinical updates. TOMASA attempted to contact [facility] Tonia at three numbers SW could locate. [phone] are disconnected. TOMASA left a general message at ph#[phone]. Discharge Plan: [facility].
--- NOTE | 2023-03-20 16:52 | NUR ---
Pt doing okay, still has pain with movement. Pt continues to get up to the commode, does well just slow movements. PT reports that it was difficulty for her to get around even before she fell.
--- NOTE | 2023-03-20 18:09 | NUR ---
No IS in the pt room, notified RT
[2023-03-20] MEDS ORDERED: Ascorbic Acid 500 MG TAB PO SCH (21:00)
[2023-03-21] VITALS (12 sets, daily range): BP systolic 108–135; BP diastolic 69–82; PULSE 58–65; TEMP 97.4–98.3
[2023-03-21 07:33] LABS: CALCIUM 8.6 mg/dL (8.4-10.2); CREATININE, serum 0.62 mg/dL (0.57-1.11); POTASSIUM 4.3 mmol/L (3.5-4.5)
[2023-03-21] MEDS ORDERED: Oxybutynin 5 MG TAB PO SCH (09:00)
[2023-03-21 10:49] LABS: BASO % 0.1 % (0.0-2.0); EOS # 0.1 K/mm3 (0.0-0.7); EOS % 0.7 % (0.0-4.0); GRAN % 59.3 % (42.2-75.2); HEMATOCRIT 41.3 % (37.0-47.0); HEMOGLOBIN 13.8 g/dl (12.5-16.0); LYMPH # 2.5 K/mm3 (1.2-3.4); MEAN CELL VOLUME 84 fl (80.0-100.0); MEAN CORPUSCULAR HEMOGLOBIN 28 pg (27-31); MEAN CORPUSCULAR HGB CONC 33 g/dl (33.0-37.0); MEAN PLATELET VOLUME 9.9 fl (7.4-10.4); MONO # 0.8 K/mm3 (0.1-0.6); MONO % 9.7 % (1.7-9.3); PLATELET COUNT 299 K/mm3 (130-400); REDCELL DISTRIBUTION WIDTH-CV 13.7 % (11.5-14.5)
--- NOTE | 2023-03-21 10:52 | NUR ---
PATIENT ALERT AND ORIENTED X4. VSS. PATIENT HERE FOR FALL/RIGHT RIB FRACTURE. IV TO LEFT FA INT AND FLUSHES WELL. PATIENT REPORTS PAIN IN THORACIC CAVITY, RATING 8/10, REQUESTS PAIN MEDICATION. LIDOCAINE PATCH TO ANTERIOR THORACIC AREA. PATIENT NOT ALLOWING THIS NURSE TO PERFORM A FULL SKIN ASSESSMENT IT HURTS TO TURN. PATIENT ALSO REFUSED THERAPY THIS AM DUE TO PAIN. PROVIDER NOTIFIED AND WILL ATTEMPT TO STAY ON PAIN MGMT REGIMEN. PATIENT INSTRUCTED TO CALL WHEN PAIN INCREASES ABOVE A NUMBER THAT IS BECOMING INTOLERABLE. PATIENT ORDERED BREAKFAST. NO FURTHER NEEDS. CALL LIGHT IN REACH. BED ALARM ON.
--- NOTE | 2023-03-21 14:03 | NUR ---
Data: Patient's son Pawel accepted Software Licensing Executive visit when offered during Software Licensing Executive rounds. Patient was in an uncomfortable position. Software Licensing Executive put screwhead stoner and polisher light for CNAs to reposition Patient. When the CNAs arrived, Son Pawel and Software Licensing Executive spoke in the hallway. Patient is from [facility]. Pawel and his have been caring for/visiting her for over two years. Patient is difficult and sometimes says mean things. Assessment: Pawel is honoring his Mother and caring for her with very little help from his siblings. He is Confucianism. Father Loc from [facility] is his Shade Cloth Finisher. Pawel has some caregiver burnout and compassion fatigue. Plan of Care: Software Licensing Executive provided supportive listening; a rosary; and a recommendation that Pawel request to speak with Father Pawel on a more regular basis. Pawel expressed his gratitude to Software Licensing Executive for the visit.
--- NOTE | 2023-03-21 21:10 | NUR ---
Patient assessed at this time, see shift assessment, A/Ox3, reports pain to anterior thoracic area when she moves, PS of 6/10, Gurley already given by dayshift nurse, denies further needs, call light and personal items within reach, will continue to monitor.
[2023-03-22] VITALS (12 sets, daily range): BP systolic 104–135; BP diastolic 70–80; PULSE 59–67; TEMP 97.4–98.9
--- NOTE | 2023-03-22 05:11 | NUR ---
Bladder scanned and resulted 269ml, will continue to monitor.
--- NOTE | 2023-03-22 08:00 | NUR ---
PATIENT IS A&O, SEEMS DEPRESSED AND DOESN'T WANT TO BE HERE. ASSEMBLER FILTERS REPORTS PATIENT IS REFUSING THERAPIES AND ADL'S. PAIN MANAGED WITH PO NORCO. PATIENT REQUESTING SOMETHING FOR PAIN, GIVEN WITH AM MEDS. NO C/O N/V. TOLERATING GENERAL DIET. LEFT FORARM IV TO INT. ANTHONY INPLACE, 2 MAX ASSIST. PT/OT CONSULTED BUT HAVE BEEN UNABLE TO WORK WITH PATIENT DUE TO REFUSAL. VSS ON TELE. HEAD TO TOE ASSESSMENT COMPLETE. DNR STATUS. PATIENT IS FROM [facility] WHERE SHE FELL. POSSIBLE DISCHARGE BACK TO [place] ON THURSDAY. NO OTHER NEEDS AT THIS TIME. CALL LIGHT IN REACH. BED ALARM ON.
--- NOTE | 2023-03-22 10:00 | NUR ---
PATIENT REFUSING THERAPY AGAIN. PATIENT CONTINUES TO REFUSE PT/OT AND RESISTS NURSING STAFF WITH MOST ADL'S. PATIENT GETS UPSET AND SAYS "WHY WONT THEY JUST LET ME ". PATIENT DOESN'T WANT TO TRY AND REHAB, SHE REPORTS SHE JUST WANTS TO BE LEFT ALONE AND DISCHARGE. PATIENT PENDING DISCHARGE THURSDAY BACK TO [facility].
--- NOTE | 2023-03-22 11:20 | NUR ---
PATIENT UPSET THAT TIM VISITED HER AND REQUESTED THEY DONT COME ANYMORE. NURSE STAFF PUT SIGN ON DOOR TO PREVENT ACCIDENTAL VISITS PATIENT WAS VERY UPSET.
--- NOTE | 2023-03-22 14:59 | NUR ---
SW contacted [facility] to check on status of transporation assistance for patient, service support representative informed SW no transporation assistance available for today and would be available tomorrow to support patient with transport. SW updated DR and will leave update with SW/staff.
--- NOTE | 2023-03-22 16:20 | NUR ---
NURSING ASSESSED PAIN AND OFFERED PAIN MEDS. PATIENT REPORTS SHE DOESN'T HAVE ANY PAIN AT REST AND HAS REFUSED ADL'S AND PT/OT ALL DAY. PATIENT DENIES NEED FOR PAIN MEDS AT THIS TIME DUE TO INACTIVITY AND STATES SHE WOULD RATHER TAKE SOMETHING FOR PAIN BEFORE BED.
[2023-03-22] MEDS ORDERED: Mag/Al Hydrox/Simeth Susp 30 ML CUP PO PRN (17:45)
[2023-03-22] MEDS ORDERED: Magnes Hydrox (MOM) 80 MG/ML 30 ML CUP PO PRN (17:45)
[2023-03-22] MEDS ORDERED: Famotidine 20 MG TAB PO SCH (21:00)
--- NOTE | 2023-03-22 21:13 | NUR ---
PT IN BED, FLAT AFFECT. SHE REPORTS HAVING A STIFF NECK AND CAN'T TURN HER HEAD TOWARDS THE DOOR. REMOVED LIDODERM PATCH FROM ANTERIOR RT RIBS. PT REPORTS PAIN TO RIBS 08/16. HS MEDS GIVEN INCLUDING NORCO FOR PAIN. HAS PUREWICK IN PLACE, YELLOW URINE NOTED. FLUSHED INT TO LT WRIST. PT WATCHING TV. APPEARS UNINTERESTED IN STAFF AND MAKING CONVERSATION. SCDS ON.
--- NOTE | 2023-03-23 | NUR ---
PT RESTING IN BED, PUREWICK IN PLACE. DENIES NEED FOR PAIN MEDS AT THIS TIME.
[2023-03-23 00:19] VITALS: BP_SYST 105
[2023-03-23 03:39] VITALS: BP 122/76; PULSE 58; TEMP 97.7
--- NOTE | 2023-03-23 04:00 | NUR ---
VSS, DENIES NEED FOR PAIN MEDS AT THIS TIME.
[2023-03-23 04:30] VITALS: BP_SYST 122
[2023-03-23 07:17] VITALS: BP 125/84; PULSE 61; TEMP 98
[2023-03-23 07:33] LABS: BASO % 0.2 % (0.0-2.0); EOS # 0.2 K/mm3 (0.0-0.7); EOS % 1.8 % (0.0-4.0); GRAN # 5.8 K/mm3 (1.4-6.5); GRAN % 61.2 % (42.2-75.2); HEMATOCRIT 43.2 % (37.0-47.0); HEMOGLOBIN 14.2 g/dl (12.5-16.0); LYMPH # 2.3 K/mm3 (1.2-3.4); LYMPH % 24.7 % (20.0-51.0); MEAN CELL VOLUME 86 fl (80.0-100.0); MEAN CORPUSCULAR HEMOGLOBIN 28 pg (27-31); MEAN CORPUSCULAR HGB CONC 33 g/dl (33.0-37.0); MONO # 1.1 K/mm3 (0.1-0.6); MONO % 11.7 % (1.7-9.3); PLATELET COUNT 290 K/mm3 (130-400); RED BLOOD COUNT 5.01 M/mm3 (4.10-5.30); REDCELL DISTRIBUTION WIDTH-CV 13.7 % (11.5-14.5)
[2023-03-23 08:04] LABS: ALBUMIN 3.3 gm/dL (3.4-4.8); CALCIUM 8.8 mg/dL (8.4-10.2); CREATININE, serum 0.61 mg/dL (0.57-1.11); MAGNESIUM 2.1 mg/dL (1.6-2.6); PHOSPHOROUS 3.5 mg/dL (2.3-4.7); POTASSIUM 4.6 mmol/L (3.5-4.5)
[2023-03-23] MEDS ORDERED: DULCOLAX STOOL100 MG PO (08:39)
[2023-03-23] MEDS ORDERED: NORCO 325 MG-51 TAB PO (08:41)
[2023-03-23 09:25] VITALS: BP_SYST 125
--- NOTE | 2023-03-23 09:28 | NUR ---
PT RESTING IN BED WITH PAIN 6/10 IN CHEST AND NECK, PAIN MEDICATION PROVIDED PER EMAR. PT INFORMED OF DISCHARGE BACK TO [facility] TODAY. PURWICK IN PLACE. WILL CONTINUE TO MONITOR.
--- NOTE | 2023-03-23 10:09 | NUR ---
Chili Pepper Grinder contacted Thalia at [facility] and notified her that patient is ready for discharge. SW set up transport time for noon. SW attempted to contact daughter, Tonia and left a message. [facility]
--- NOTE | 2023-03-23 11:33 | NUR ---
Chemical Reclamation Equipment Operator received a message from daughter, Tonia stating she is aware patient is discharging back to [facility] and has no questions at this time.
--- NOTE | 2023-03-23 13:16 | NUR ---
PT AND BELONGINGS GATHERD FOR DISCHARGE. PACKET PROVIDED TO TRANSPORTER. IV AND TELLE REMOVED. PT ASSISTED INTO VEHICLE.
== END 2023-03-23 12:30 ==
LOC: COL.ER 06:05 → SURG 09:03
PROVIDERS: Emergency Medicine; Internal Medicine; Physician Assistant; ADMIT Hospitalist
DX: S32.010A Wedge compression fracture of first lumbar vertebra, initial encounter for closed fracture (principal); S22.31XA Fracture of one rib, right side, initial encounter for closed fracture; M54.50 Low back pain, unspecified; R07.89 Other chest pain; I10 Essential (primary) hypertension; M19.90 Unspecified osteoarthritis, unspecified site; K21.9 Gastro-esophageal reflux disease without esophagitis; N32.81 Overactive bladder; K44.9 Diaphragmatic hernia without obstruction or gangrene; I63.81 Other cerebral infarction due to occlusion or stenosis of small artery; K80.20 Calculus of gallbladder without cholecystitis without obstruction; D72.829 Elevated white blood cell count, unspecified; F32.A Depression, unspecified; W01.0XXA Fall on same level from slipping, tripping and stumbling without subsequent striking against object, initial encounter; Z79.899 Other long term (current) drug therapy
CPT/HCPCS: A9284; G0378; J3010

== ENCOUNTER 2023-06-01 11:39 | Emergency (ER) | payer MEDICARE, BC ==
[~2023-06-01] VITALS: Ht 165.1 cm; Wt 59.1 kg
[~2023-06-01 11:39] MED LIST changes: +DULCOLAX STOOL100 MG PO; +MINTOX PO
[2023-06-01 11:48] VITALS: TEMP 98.1
[2023-06-01] MEDS ORDERED: Acetaminophen 325 MG TAB PO ONE (12:45)
[2023-06-01 15:31] VITALS: BP 98/76; PULSE 79
== END 2023-06-01 15:33 | disposition home or self-care (01) ==
LOC: COL.ER 11:39
DX: S22.31XA Fracture of one rib, right side, initial encounter for closed fracture (principal); W19.XXXA Unspecified fall, initial encounter; Y92.129 Unspecified place in nursing home as the place of occurrence of the external cause
CPT/HCPCS: A9284